=== PATIENT | male | born 1945 | race African-American/Black ===

== ENCOUNTER 2017-04-04 04:45 | Inpatient (IN) | payer MEDICARE, MEDICAID ==
[~2017-04-04] VITALS: Ht 172.7 cm; Wt 74.8 kg
[2017-04-04 05:40] VITALS: BP 147/67
[2017-04-04] MEDS ORDERED: LORAZEPAM 1 MG TABLET ONE (05:54)
[2017-04-04] MEDS ORDERED: MAGNESIUM HYDROXIDE 30 ML UDC PO PRN (06:00)
[2017-04-04] MEDS ORDERED: ACETAMINOPHEN 325 MG TABLET PO PRN (06:00)
[2017-04-04] MEDS ORDERED: MAG HYDROX/AL HYDROX/SIMETH 30 ML UDC PO PRN (06:00)
[2017-04-04] MEDS: LORAZEPAM 0.5 MG TABLET PO PRN (06:38)
[2017-04-04 08:00] VITALS: BP 118/59
[2017-04-04 08:52] LABS: CHOLESTEROL 178 mg/dL (<200); HDL CHOLESTEROL 82 mg/dL (40-60); LDL 94 mg/dL (0-99); TRIGLYCERIDES 38 mg/dL (30-150)
[2017-04-04] MEDS: NICOTINE PATCH (21MG) 21 MG PATCH.TD24 TD SCH (15:33)
[2017-04-04 15:55] VITALS: BP 126/66
[2017-04-04 20:00] VITALS: BP 117/70
[2017-04-04] MEDS: QUETIAPINE FUMARATE 25 MG TABLET PO SCH (22:01)
[2017-04-04] MEDS: ZOLPIDEM TARTRATE 5 MG TABLET PO PRN (22:01)
[2017-04-05 08:00] VITALS: BP 121/62
[2017-04-05] MEDS: NICOTINE PATCH (21MG) 21 MG PATCH.TD24 TD SCH (08:59)
[2017-04-05 16:14] VITALS: BP 154/82
[2017-04-05 20:00] VITALS: BP 140/73
[2017-04-05] MEDS: QUETIAPINE FUMARATE 25 MG TABLET PO SCH (21:46)
[2017-04-05] MEDS: ZOLPIDEM TARTRATE 5 MG TABLET PO PRN (21:47)
[2017-04-06] MEDS ORDERED: ZOLPIDEM TARTRATE 5 MG TABLET PO ONE
[2017-04-06 07:47] VITALS: BP 150/80
[2017-04-06] MEDS: NICOTINE PATCH (21MG) 21 MG PATCH.TD24 TD SCH (10:00)
[2017-04-06 15:44] VITALS: BP 119/66
[2017-04-06 20:03] VITALS: BP 141/65
[2017-04-06] MEDS: ZOLPIDEM TARTRATE 5 MG TABLET PO PRN (21:06)
[2017-04-06] MEDS: QUETIAPINE FUMARATE 25 MG TABLET PO SCH (22:00)
[2017-04-07 08:00] VITALS: BP 140/96
[2017-04-07] MEDS: PANTOPRAZOLE 40 MG TABLET.DR PO SCH ×2 (08:37→21:00)
[2017-04-07] MEDS: NICOTINE PATCH (21MG) 21 MG PATCH.TD24 TD SCH (08:37)
[2017-04-07 16:00] VITALS: BP 131/71
[2017-04-07 19:34] VITALS: BP 124/76
[2017-04-07] MEDS: ZOLPIDEM TARTRATE 5 MG TABLET PO PRN (21:44)
[2017-04-07] MEDS: QUETIAPINE FUMARATE 25 MG TABLET PO SCH (22:00)
[2017-04-08] MEDS: LORAZEPAM 0.5 MG TABLET PO PRN (01:58)
[2017-04-08 08:00] VITALS: BP 126/75
[2017-04-08] MEDS: NICOTINE PATCH (21MG) 21 MG PATCH.TD24 TD SCH (09:01)
[2017-04-08] MEDS: PANTOPRAZOLE 40 MG TABLET.DR PO SCH (09:01)
== END 2017-04-08 14:20 | disposition home or self-care (01) | DRG 885 ==
LOC: GPS 05:22
PROVIDERS: ADMIT Psychiatry & Neurology Psychiatry; ATTEND Internal Medicine
DX: F29 Unspecified psychosis not due to a substance or known physiological condition (principal); I10 Essential (primary) hypertension; F10.20 Alcohol dependence, uncomplicated; F17.210 Nicotine dependence, cigarettes, uncomplicated; K21.9 Gastro-esophageal reflux disease without esophagitis; Z85.038 Personal history of other malignant neoplasm of large intestine; Z91.81 History of falling
CPT/HCPCS: 36415; 80061-TC; Z7610

== ENCOUNTER 2017-04-19 11:31 | Inpatient (IN) | payer MEDICARE, MEDICAID ==
[~2017-04-19] VITALS: Ht 165.1 cm; Wt 70.3 kg
--- NOTE | 2017-04-19 11:45 | NUR ---
TERRENCE FROM HOME FOR MEDICAL CLEARANCE. PER REPORT PATIENT HAS BEEN AGRRESSIVE TO FAMILY. PATIENT ARRIVED ALERT AND ORIENTED, STILL APPEARS AGITATED. PLACED PT COMFORTABLY TO RM 03. CLOSE MONITORING WILL BE DONE
--- NOTE | 2017-04-19 12:00 | NUR ---
PATIENT CALM AT THIS TIME
[2017-04-19 12:17] LABS: BASOPHILS % (AUTO) 0.3 % (0.0-2.0); EOSINOPHILS # (AUTO) 0.5 /CMM (0.0-0.7); EOSINOPHILS % (AUTO) 4.5 % (0.0-6.0); HEMATOCRIT 42 % (39-51); HEMOGLOBIN 13.6 g/dL (13.5-17.5); LYMPHOCYTES # (AUTO) 2.2 /CMM (0.8-4.8); LYMPHOCYTES % (AUTO) 20.6 % (20.0-44.0); MEAN CORPUSCULAR HEMOGLOBIN 31 PG (26.0-33.0); MEAN CORPUSCULAR HGB CONC 33 g/dl (31.0-36.0); MEAN CORPUSCULAR VOLUME 93 fL (80-96); MONOCYTES # (AUTO) 0.4 /CMM (0.1-1.30); MONOCYTES % (AUTO) 3.8 % (2.0-12.0); NEUTROPHILS # (AUTO) 7.6 /CMM (1.8-8.9); NEUTROPHILS % (AUTO) 70.8 % (43.0-81.0); PLATELET COUNT (AUTO) 198 /CMM (150-450); RDW COEFFICIENT OF VARIATION 13.4 (11.5-15.0); RED BLOOD CELL COUNT(AUTO) 4.47 MIL/uL (4.5-6.0); WHITE BLOOD COUNT (AUTO) 10.7 K/uL (4.3-11.0)
[2017-04-19 12:26] LABS: CALCIUM, SERUM 8.4 mg/dL (8.5-10.1); CARBON DIOXIDE 31 mmol/L (21-32); CHLORIDE 105 mmol/L (98-107); CREATININE 0.8 mg/dL (0.6-1.3); GLUCOSE 102 mg/dL (74-106); POTASSIUM 4.1 mmol/L (3.5-5.1); SODIUM SERUM 143 mmol/L (136-145); UREA NITROGEN, BLOOD 9 mg/dL (7-18)
[2017-04-19 12:32] LABS: ACETAMINOPHEN 0 ug/ml (10-30); ALANINE AMINOTRANSFERASE 19 U/L (12-78); ALBUMIN 3.6 g/dL (3.4-5.0); ALCOHOL, BLOOD < 3 mg/dL (0-0); ALKALINE PHOSPHATASE 78 U/L (46-116); ASPARTATE AMINOTRANSFERASE 21 U/L (15-37); BILIRUBIN,DIRECT 0.1 mg/dL (0.0-0.2); BILIRUBIN,TOTAL 0.4 mg/dL (0.2-1.0); SALICYLATE 3.4 mg/dL (2.8-20.0); TOTAL PROTEIN, SERUM 7.5 g/dL (6.4-8.2)
--- NOTE | 2017-04-19 13:12 | NUR ---
REPOTY GIVEN TO ELAN SUTTON FOR JESSICA
[2017-04-19 13:15] VITALS: BP 148/90
--- NOTE | 2017-04-19 13:19 | NUR ---
PT TRANSPORTED TO [address] [place] [address]
--- NOTE | 2017-04-19 13:30 | NUR ---
GPS/RN RECEIVED PT FROM ER NO ACUTE DISTRESS NOTED, VSS, AMBULATORY A/O X3. ON 5150 FOR DTO. ON FACE TO FACE ASSESSMENT NO SI OR HI REPORTED. ADMITTING ORDERS FROM DR AGOSTO RECEIVED AND CARRIED OUT. DR GOMEZ MADE AWARE OF ADMISSION. BELONGINGS CHECKED FOR CONTRABAND. FAMILY NOTIFIED OF ADMISSION.P T REFUSED TO SIGN ADMITTING PAPERWORK, APPEARED AGITATED AND PARANOID. WILL CONTINUE TO MONITOR
[2017-04-19] MEDS ORDERED: MAGNESIUM HYDROXIDE 30 ML UDC PO PRN (14:00)
[2017-04-19] MEDS ORDERED: LORAZEPAM 0.5 MG TABLET PO PRN (14:00)
[2017-04-19] MEDS ORDERED: MAG HYDROX/AL HYDROX/SIMETH 30 ML UDC PO PRN (14:00)
[2017-04-19] MEDS ORDERED: QUET25TA PO (14:06)
[2017-04-19] MEDS ORDERED: ZOLP5TAB2 PO (14:22)
[2017-04-19] MEDS ORDERED: PANT40TA4 PO (14:22)
[2017-04-19] MEDS ORDERED: NICO1PAT20 TD (14:22)
[2017-04-19 16:00] VITALS: BP 154/83
[2017-04-19] MEDS: ACETAMINOPHEN 325 MG TABLET PO PRN (17:52)
[2017-04-19 20:31] VITALS: BP 110/60
[2017-04-19] MEDS: PANTOPRAZOLE 40 MG TABLET.DR PO SCH (21:45)
[2017-04-20] MEDS: ZOLPIDEM TARTRATE 5 MG TABLET PO PRN ×2 (00:35→21:11)
--- NOTE | 2017-04-20 00:35 | NUR ---
GPS RN NOTE: PT APPROACHED ME AND SAID THAT HE TRIED TO SLEEP WITHOUT TAKING A SLEEPING AID BUT WOKE UP AND COULDN'T GO BACK TO SLEEP. PT REQUESTED FOR HIS AMBIEN. WAS ADMINISTERED AMBIEN 5MG PO. WILL CONTINUE TO MONITOR PT.
[2017-04-20 07:56] LABS: ALANINE AMINOTRANSFERASE 21 U/L (12-78); ALBUMIN 3.1 g/dL (3.4-5.0); ALKALINE PHOSPHATASE 60 U/L (46-116); ASPARTATE AMINOTRANSFERASE 19 U/L (15-37); BILIRUBIN,TOTAL 0.5 mg/dL (0.2-1.0); CALCIUM, SERUM 8.6 mg/dL (8.5-10.1); CARBON DIOXIDE 28 mmol/L (21-32); CHLORIDE 107 mmol/L (98-107); CREATININE 0.7 mg/dL (0.6-1.3); GLUCOSE 121 mg/dL (74-106); POTASSIUM 3.9 mmol/L (3.5-5.1); SODIUM SERUM 143 mmol/L (136-145); TOTAL PROTEIN, SERUM 6.8 g/dL (6.4-8.2); UREA NITROGEN, BLOOD 10 mg/dL (7-18)
[2017-04-20 08:00] VITALS: BP 142/77
[2017-04-20] MEDS: NICOTINE PATCH (21MG) 21 MG PATCH.TD24 TD SCH (08:20)
[2017-04-20] MEDS: PANTOPRAZOLE 40 MG TABLET.DR PO SCH ×2 (08:21→21:09)
[2017-04-20 15:58] VITALS: BP 114/71
[2017-04-20 19:54] VITALS: BP 150/80
[2017-04-20] MEDS: QUETIAPINE FUMARATE 25 MG TABLET PO SCH (21:13)
[2017-04-21] MEDS: NICOTINE PATCH (21MG) 21 MG PATCH.TD24 TD SCH (08:01)
[2017-04-21] MEDS: PANTOPRAZOLE 40 MG TABLET.DR PO SCH ×2 (08:25→21:28)
[2017-04-21] MEDS: ACETAMINOPHEN 325 MG TABLET PO PRN ×2 (10:00→21:28)
--- NOTE | 2017-04-21 10:00 | NUR ---
[id number]: GAVE TYLENOL 650 MG PO DUE TO HEADACHE 01/18 UPON PT REQUEST AND WILL CONTINUE TO MONITOR FOR EFFECTIVENESS OF MEDICATION
--- NOTE | 2017-04-21 10:42 | NUR ---
Initial discharge plan: Patient resides at [address] [place], [place] [id number]; [phone]. Sw will follow with pt's , Miya [phone] to discuss discharge plan. SW attempted but she was unavailable. SW will help form a safe and proper discharge.
--- NOTE | 2017-04-21 10:43 | NUR ---
I have reviewed this patients psychosocial dated 04/07/17 and I can attest to the accuracy of the information therein. There have been no changes since his last assessment. Upon face to face with the high school social studies tutor, pt. is alert and oriented to time, place, self, and situation. He appeared delusional and inappropriate, mentioning he will need an older high school social studies tutor and he hopes that the assigned high school social studies tutor does not mind that as she is too young for what he wants. He has previously asked the high school social studies tutor for her phone number because he was going to have an interesting proposal for her. Pt. appeared to have expansive mood with inappropriate affect. He denied suicidal and homicidal ideations. He denied visual/auditory hallucinations. Pt's impulse control and insight appear to be impaired.
[2017-04-21 16:00] VITALS: BP 130/60
[2017-04-21] MEDS: QUETIAPINE FUMARATE 25 MG TABLET PO SCH (21:28)
[2017-04-21] MEDS: ZOLPIDEM TARTRATE 5 MG TABLET PO PRN (21:29)
--- NOTE | 2017-04-21 23:10 | NUR ---
GPS RN: PATIENT FOUND ON THE BATHROOM NATHANAEL. ASSESSED FOR ANY WOUND, REDNESS OR PAIN ON HIS BODY, PATIENT DENIES. HE CLAIMS HE FELL BECAUSE HE FELT THAT HE WAS SPINNING. VITAL SIGNS CHECKED- BP 87/58 HR-59.PATIENT USHERED TO BED, MINUTES AFTER HE WAS SETTLED IN BED, PATIENT WAS NAUSEATED AND VOMITED AND EVENTUALLY PASSED SOME LIQUID CONSISTENCY STOOL. PATIENT THEN CLEANED UP AND CHANGED TO A NEW GOWN. PATIENT CLAIMED THAT HE HAS ABDOMINAL PAIN. VITAL SIGNS RECHECKED THIS TIME BP-115/63 HR- 66 O2 SAT-97. AROUND 2234- PAGED DR. BLAND AND INFORMED REGARDING PATIENTS CONDITION, WITH ORDERS TO MONITOR PATIENTS ABDOMINAL PAIN STATUS AND REFER WHEN NEEDED. AROUND 2329- PATIENT WAS HEARD SCREAMING, WHEN ASSESSED, PATIENT STATED THAT HIS ABDOMEN IS IN PAIN, WHEN CHECKED, HE HAS PAIN AND TENDERNESS ON THE LEFT LOWER QUADRANT. DR. BLAND MADE AWARE, WITH ORDERS TO DO CT OF THE ABDOMEN AND PELVIS. PATIENT REFUSED THE SAID TEST, PER PATIENT, HE DOES NOT NEED IT RIGHT NOW BECAUSE THE PAIN WENT AWAY. WILL CONTINUE TO MONITOR PATIENT. WILL ENDORSE TO DAY SHIFT NURSE.
--- NOTE | 2017-04-22 07:30 | NUR ---
GPS RN: SPOKE WITH JERAD ([phone]) REGARDING THE FALL INCIDENT OF THE PATIENT. PER , PATIENT FELL AT HOME PRIOR TO BEING CONFINED HERE AT [facility]. INFORMED HER ALSO REGARDING THE PATIENT'S REFUSAL TO HAVE THE CT OF ABDOMEN AND PELVIS DONE. ENDORSED TO DAY SHIFT NURSE.
[2017-04-22] MEDS: PANTOPRAZOLE 40 MG TABLET.DR PO SCH (08:00)
[2017-04-22] MEDS: NICOTINE PATCH (21MG) 21 MG PATCH.TD24 TD SCH (08:00)
--- NOTE | 2017-04-22 08:43 | NUR ---
PATIENT WAS BROUGHT DOWN TO CT. PATIENT THEN REFUSED CT ABDOMEN PELVIS. PATIENT RETURNED TO ROOM WITHOUT GETTING SCANNED
--- NOTE | 2017-04-22 09:00 | NUR ---
[id number]: PT REFUSES TO DO PELVIC AND ABDOMINAL CT. PT STATED, "I FEEL OK AND I DON'T WANT TO DO IT." NOTIFIED NP. MYERS ABOUT PT'S REFUSAL.
--- NOTE | 2017-04-22 10:00 | NUR ---
[id number]: PT SIGNED VOLUNTARY STATUS AND AGREES TO BE COMPLAINT WITH TREATMENT WHILE STAY IN HOSPITAL. PT STATED, " I WILL TAKE MY MEDICATIONS. I WILL FOLLOW UP WITH MY DOCTOR."
--- NOTE | 2017-04-22 11:30 | NUR ---
[id number]: NO COMPLAIN OF PAIN OR DISCOMFORT. CONTINUE TO ASSESS PT FOR PAIN. WILL CONTINUE TO MONITOR EVERY 15 MINUTES.
--- NOTE | 2017-04-22 14:30 | NUR ---
[id number]: NOTIFIED JIMBO LEWIS ABOUT PT BEING FOUND ON THE FLOOR LAST NIGHT. PT HAD A LOW BLOOD PRESSURE OF 87/58 AND PULSE 59 AND FEELING DIZZY. RECHECKED BP IN THE NIGHT IS 115/63 AND PULSE 66. LATER DURING THE NIGHT, PT COMPLAIN OF ABDOMINAL PAIN. DR. BLAND ORDERED CT OF ABDOMINAL AND PELVIC. PT REFUSED CT OF ABDOMINAL AND PELVIC EVEN TODAY IN THE MORNING. NOTIFIED JIMBO MYERS ABOUT THE INCIDENT FROM LAST NIGHT. NO COMPLAIN OF PAIN OR DISCOMFORT AT THIS TIME
--- NOTE | 2017-04-22 14:37 | NUR ---
Discharge note: discharge to [facility] ([phone]) [address] [facility] [place] [address]. Miya [phone] was notified. Pt. agreed with the discharge plan and appreciated the nursing home social worker's effort to find an appropriate facility. Pt. will follow up with Dr. Shaw [address] [place] [address], [place] [address] [phone] at the facility on 04/24/17 at 9:30AM to discuss alcohol dependency. Pt. is a smoker, pt. was referred and will attend nicotine anonymous at [facility] [place] on at 1:00 PM [phone] PIN: [id number]# Discharge paperwork has been signed, discharge instructions provided to the accepting facility.
--- NOTE | 2017-04-22 14:42 | NUR ---
[id number]: NO COMPLAIN OF PAIN OR DISCOMFORT. WILL CONTINUE TO MONITOR EVERY 15 MINUTES.
--- NOTE | 2017-04-22 14:50 | NUR ---
[id number]: SPOKE TO DAUGHTER WITH THE PERMISSION OF PT TO NOTIFY PT IS GOING TO [facility] AT 1600.
--- NOTE | 2017-04-22 17:30 | NUR ---
PT IS 72 YEARS OLD MALE DISCHARGE TO [facility] AT [address] [facility] [place]. [address] IN STABLE CONDITION. COMPLIANT WITH MEDICATIONS, COOPERATIVE WITH TREATMENT PLANS. PT DENIES SI/HI AND INSTRUCTED TO GO TO THE CLOSEST ER IF DEVELOPING SI/HI. BEHAVIOR IMPROVED, PSYCHIATRIC TX PLANS MET, MEDICAL PLANS DEFERRED FOR CONTINUAL MONITORING. EDUCATED PT ABOUT AFTER CARE PLAN AND COPY PROVIDED. RETURNED PERSONAL BELONGINGS TO PT. MEDICATIONS RECONCILED WITH DR. AGOSTO AND PICTURE FRAMES INSPECTOR DEBBIE MYERS. REPORT GIVEN TO TRENA FROM [facility] FOR CONTINUITY OFCARE. PT SIGNED DISCHARGE PAPERWORK. SKIN ASSESSMENT COMPLETED. PT LEFT THE UNIT ACCOMPANIED BY AMBULANCE STAFF.
== END 2017-04-22 17:30 | DRG 897 ==
LOC: ER 11:33 → GPS 13:28
PROVIDERS: ADMIT Psychiatry & Neurology Psychiatry; ATTEND Psychiatry & Neurology Psychiatry
DX: F10.259 Alcohol dependence with alcohol-induced psychotic disorder, unspecified (principal); F29 Unspecified psychosis not due to a substance or known physiological condition; I10 Essential (primary) hypertension; F32.9 Major depressive disorder, single episode, unspecified; F41.9 Anxiety disorder, unspecified; K21.9 Gastro-esophageal reflux disease without esophagitis; Z85.038 Personal history of other malignant neoplasm of large intestine; Z79.899 Other long term (current) drug therapy; Y90.0 Blood alcohol level of less than 20 mg/100 ml; F17.200 Nicotine dependence, unspecified, uncomplicated; Z73.6 Limitation of activities due to disability
CPT/HCPCS: 36415; 80048-TC; 80053-TC; 80076-TC; 85025-TC; 87081-TC; A4606; G0480; Z7610

== ENCOUNTER 2017-07-01 14:52 | Outpatient (CLI) | payer MEDICARE, MEDICAID ==
[~2017-07-01 14:52] MED LIST: NICO1PAT20 TD; PANT40TA4 PO
== END 2017-07-01 23:59 | disposition home or self-care (01) ==
LOC: MRI 14:52
PROVIDERS: ATTEND Anesthesiology
DX: M51.27 Other intervertebral disc displacement, lumbosacral region (principal); M51.26 Other intervertebral disc displacement, lumbar region; M48.061 Spinal stenosis, lumbar region without neurogenic claudication; M43.16 Spondylolisthesis, lumbar region
CPT/HCPCS: 72148-TC

== ENCOUNTER → 2017-07-11 | Day surgery (SDC) | payer MEDICARE, MEDICAID ==
[~2017-07-11] MED LIST changes: +NICO-627 TD; -NICO1PAT20 TD; +methylPREDNISolone ACETATE 80 MG/ML VIAL ONE
== END | disposition home or self-care (01) ==
LOC: DS 07:46
PROVIDERS: ATTEND Anesthesiology
DX: M51.16 Intervertebral disc disorders with radiculopathy, lumbar region (principal); M47.26 Other spondylosis with radiculopathy, lumbar region
CPT/HCPCS: 72020-TC; A6209; J1040